=== PATIENT | female | born 1960 | race Caucasian/White ===

== ENCOUNTER → 2017-08-17 | Outpatient (CLI) | payer OTHER ==
[2016-01-29 08:12] VITALS: BP 111/56
[~2017-08-17] MED LIST: CA C1TAB42 PO; CAFF200T13 PO; CHOL10003 PO
[2017-08-17 10:27] LABS: BASO % 1 % (0-3); EOS % 1 % (0-3); HEMATOCRIT 39.8 % (36.0-47.0); LYMPH # 1.6 x10^3/uL (1.0-4.8); LYMPH % 33 % (24-48); MEAN CORPUSCULAR HEMOGLOBIN 30 pg (25-35); MEAN CORPUSCULAR HGB CONC 33 g/dL (31-37); MEAN CORPUSCULAR VOLUME 92 fL (79-100); MONO % 7 % (0-9); NEUT % 59 % (31-73); PLATELET COUNT 212 x10^3/uL (140-400); RED BLOOD COUNT 4.32 x10^6/uL (3.50-5.40); RED CELL DISTRIBUTION WIDTH 13.4 % (11.5-14.5)
[2017-08-17 12:45] LABS: ALBUMIN 4.2 g/dL (3.4-5.0); ALBUMIN/GLOBULIN RATIO 1.2 (1.0-1.7); CREATININE 0.9 mg/dL (0.6-1.0); GFR 64.3; POTASSIUM 4.3 mmol/L (3.5-5.1); TOTAL BILIRUBIN 0.8 mg/dL (0.2-1.0); TOTAL PROTEIN 7.8 g/dL (6.4-8.2)
[2017-08-17 13:45] LABS: FREE T4 1.15 ng/dL (0.76-1.46)
== END | disposition home or self-care (01) ==
LOC: LAB 08:41
PROVIDERS: ATTEND Family Medicine
DX: Z12.4 Encounter for screening for malignant neoplasm of cervix (principal); R79.89 Other specified abnormal findings of blood chemistry
CPT/HCPCS: 36415; 80053; 84439; 84443; 85025

== ENCOUNTER → 2017-09-12 | Outpatient (CLI) | payer OTHER ==
[2016-01-29 08:12] VITALS: BP 111/56
[2017-09-12 09:11] LABS: ALBUMIN 4.4 g/dL (3.4-5.0); DIRECT BILIRUBIN 0.2 mg/dL (0.0-0.2); TOTAL BILIRUBIN 0.9 mg/dL (0.2-1.0); TOTAL PROTEIN 8.3 g/dL (6.4-8.2)
--- NOTE | 2017-09-12 11:37 | RAD ---
Abdominal ultrasound, 09/12/2017: History: Elevated liver function test The gallbladder is within normal limits in size. There is no sonographic evidence of cholelithiasis. The common hepatic duct is of normal caliber. There is no evidence of a hepatic mass or bile duct dilatation. The liver measures 15 cm in craniocaudad extent at the level the right lobe. The visualized portions of the pancreas are unremarkable. The spleen is of normal size. No renal abnormality is detected. The aorta and inferior vena cava are unremarkable. No free fluid is evident in the abdomen. IMPRESSION: No significant abnormality is detected. MTDD
== END | disposition home or self-care (01) ==
LOC: US 10:16
PROVIDERS: ATTEND Family Medicine
DX: R74.8 Abnormal levels of other serum enzymes (principal); R79.89 Other specified abnormal findings of blood chemistry
CPT/HCPCS: 36415; 76700; 80076; 86803; 87340

== ENCOUNTER → 2017-09-22 | Outpatient (CLI) | payer OTHER ==
[2017-09-22 09:51] LABS: ALBUMIN 3.9 g/dL (3.4-5.0); ALK PHOS 77 U/L (46-116); ALT (SGPT) 135 U/L (14-59); AST (SGOT) 87 U/L (15-37); DIRECT BILIRUBIN 0.2 mg/dL (0.0-0.2); TOTAL BILIRUBIN 0.6 mg/dL (0.2-1.0); TOTAL PROTEIN 7.6 g/dL (6.4-8.2)
== END | disposition home or self-care (01) ==
LOC: LAB 09:13
DX: R74.8 Abnormal levels of other serum enzymes (principal)
CPT/HCPCS: 36415; 80076

== ENCOUNTER → 2017-10-12 | Outpatient (CLI) | payer OTHER ==
[2017-10-12 07:42] LABS: ALBUMIN 3.9 g/dL (3.4-5.0); ALK PHOS 88 U/L (46-116); ALT (SGPT) 117 U/L (14-59); AST (SGOT) 71 U/L (15-37); DIRECT BILIRUBIN 0.2 mg/dL (0.0-0.2); TOTAL BILIRUBIN 0.7 mg/dL (0.2-1.0); TOTAL PROTEIN 7.7 g/dL (6.4-8.2)
== END | disposition home or self-care (01) ==
LOC: LAB 07:11
DX: R74.8 Abnormal levels of other serum enzymes (principal)
CPT/HCPCS: 36415; 80076

== ENCOUNTER → 2017-11-02 | Outpatient (CLI) | payer OTHER ==
[2017-11-02 09:26] LABS: % SAT IRON 39 % (15-34); IRON,SERUM 115 ug/dL (50-170)
[2017-11-02 09:38] LABS: ALBUMIN 3.7 g/dL (3.4-5.0); ALK PHOS 78 U/L (46-116); ALT (SGPT) 61 U/L (14-59); AST (SGOT) 44 U/L (15-37); DIRECT BILIRUBIN 0.2 mg/dL (0.0-0.2); FERRITIN 159 ng/mL (8-252); TOTAL BILIRUBIN 0.7 mg/dL (0.2-1.0); TOTAL PROTEIN 7.5 g/dL (6.4-8.2)
[2017-11-02 17:17] LABS: ALPHA 1 ANTITRYPSIN 139 mg/dL (90-200)
[2017-11-02 19:14] LABS: IMMUNOGLOBULIN A 307 mg/dL (87-352); IMMUNOGLOBULIN G 1099 mg/dL (700-1600); IMMUNOGLOBULIN M 73 mg/dL (26-217)
[2017-11-03 16:22] LABS: CERULOPLASMIN 27.2 mg/dL (19.0-39.0)
[2017-11-05 10:09] LABS: SMOOTH MUSCLE AB 13 Units (0-19)
== END | disposition home or self-care (01) ==
LOC: LAB 05:56
DX: R94.5 Abnormal results of liver function studies (principal); R79.89 Other specified abnormal findings of blood chemistry
CPT/HCPCS: 36415; 80076; 82103; 82390; 82728; 82784; 83520; 83540; 83550; 86255

== ENCOUNTER → 2018-04-04 | Outpatient (CLI) | payer OTHER ==
[2018-04-04 11:23] LABS: ALBUMIN 3.9 g/dL (3.4-5.0); ALK PHOS 72 U/L (46-116); ALT (SGPT) 39 U/L (14-59); AST (SGOT) 28 U/L (15-37); DIRECT BILIRUBIN 0.2 mg/dL (0.0-0.2); TOTAL BILIRUBIN 0.7 mg/dL (0.2-1.0); TOTAL PROTEIN 7.4 g/dL (6.4-8.2)
== END | disposition home or self-care (01) ==
LOC: LINQ 10:49
DX: R94.5 Abnormal results of liver function studies (principal)
CPT/HCPCS: 36415; 80076